=== PATIENT | male | born 1980 | race Hispanic/Latino ===

== ENCOUNTER → 2021-05-31 | Outpatient (CLI) | payer OTHER | END | disposition home or self-care (01) | LOC: EDUNIT# 15:00 → DTH 15:37 | PROVIDERS: ATTEND Surgery | DX: I10 Essential (primary) hypertension (principal); E66.09 Other obesity due to excess calories; K76.0 Fatty (change of) liver, not elsewhere classified | CPT/HCPCS: 97803 ==